=== PATIENT | male | born 1960 | race Caucasian/White ===

== ENCOUNTER 2021-02-17 15:55 | Emergency (ER) | payer OTHER ==
[~2021-02-17] VITALS: Ht 195.6 cm; Wt 108.9 kg
[~2021-02-17 15:55] MED LIST: AMBIEN 5 MG TABL5 M1; AMITRIPTYLINE H25 M2 PO; AMITRIPTYLINE H50 M4 PO; ANTIBIOTIC; AZITHROMYCIN 2250 MG PO; FENTANYL PA25 MCG/HR; FLEXERIL PO; HYDROCODONE-AP1 EAC6; HYDROCODONE-AP1 EAC6 PO; LEVAQUIN 750 M750 MG PO; LEVOTHYROXIN0.075 MG PO; LEVOTHYROXINE 0.15MG; NORCO 5-325 TA1 EACH PO; PROAIR HFA8.5 GM INH; TESSALON PERLE100 MG PO; VOLTAREN GEL 1100 G2; XANAX 0.25 MG0.25 MG
[2021-02-17 17:25] VITALS: BP 145/88
== END 2021-02-17 17:26 | disposition left against medical advice (07) ==
LOC: M.ERS 15:55
DX: Z53.21 Procedure and treatment not carried out due to patient leaving prior to being seen by health care provider (principal)

== ENCOUNTER 2021-03-26 12:24 | Emergency (ER) | payer BC ==
[~2021-03-26] VITALS: Ht 195.6 cm; Wt 113.4 kg
[2021-03-26] MEDS ORDERED: NEURONTIN300 MG PO (12:52)
[2021-03-26 16:47] LABS: ABSOLUTE BASOPHILS 0.2 thou/uL (0.0-0.2); ABSOLUTE EOSINOPHILS 0.4 thou/uL (0.0-0.7); ABSOLUTE LYMPHOCYTES 1.6 thou/uL (0.8-5.3); ABSOLUTE NEUTROPHILS 15.7 thou/uL (1.6-8.1); BASOPHILS 1.1 %; EOSINOPHILS 1.9 %; HEMOGLOBIN 14.9 gm/dL (14.0-18.0); LYMPHOCYTES 8.6 %; MCH 29.3 pg (26.0-34.0); MCHC 32.5 g/dL (28.0-37.0); MONOCYTES 5.1 %; MPV 7.1 fl. (7.2-11.1); NUCLEATED RBCS 0 /100WBC; PLATELET COUNT* 328 thou/uL (150-400); POLYS 83.3 %; RBC 5.11 mil/uL (4.50-6.00); RDW-CV 14.4 % (10.5-14.5); WBC 18.9 thou/uL (4.0-11.0)
[2021-03-26 16:55] LABS: CREATININE 1.2 mg/dL (0.6-1.3); POTASSIUM 4.3 mmol/L (3.5-5.1)
[2021-03-26] MEDS ORDERED: CEPHALEXIN500 MG PO (17:28)
[2021-03-26] MEDS ORDERED: BACTRIM DS TAB1 EACH PO (17:28)
[2021-03-26 17:30] VITALS: BP 163/102
== END 2021-03-26 17:30 | disposition home or self-care (01) ==
LOC: M.ERS 12:24
PROVIDERS: Physician Assistant
DX: A41.9 Sepsis, unspecified organism (principal); L03.116 Cellulitis of left lower limb; E03.9 Hypothyroidism, unspecified; F17.210 Nicotine dependence, cigarettes, uncomplicated; Z90.49 Acquired absence of other specified parts of digestive tract; Z79.899 Other long term (current) drug therapy; Z91.040 Latex allergy status